=== PATIENT | female | born 1980 | race Caucasian/White ===

== ENCOUNTER 2023-12-01 06:15 | Inpatient (IN) | payer BC, OTHER ==
[~2023-12-01] VITALS: Ht 160 cm; Wt 79.6 kg
[2023-12-01] MEDS: ONDANSETRON HCL 4 MG/2 ML VIAL IV ONE ×3 (06:30→15:27)
[2023-12-01] MEDS: SODIUM CHLORIDE 0.9% 1,000 ML IVB ONE (06:30)
[2023-12-01] MEDS: MORPHINE SULFATE 4 MG/ML SYR/VIAL IV ONE (06:58)
[2023-12-01] MEDS: KETOROLAC TROMETH 30 MG/ML 1ML VIAL IV ONE (07:02)
[2023-12-01 07:09] LABS: Basophils # (auto) 0.1 10 ^3/uL (0-0.2); Basophils % (auto) 0.6 % (0.0-2.0); Eosinophils # (auto) 0.1 10 ^3/uL (0-0.8); Eosinophils % (auto) 1.1 % (0.0-7.0); Hematocrit 39.7 % (36.0-46.0); Hemoglobin 13.5 g/dL (12.2-16.2); Lymphocytes # (auto) 1.1 10 ^3/uL (0.4-5.4); Lymphocytes % (auto) 9.7 % (10.0-50.0); Mean Corpuscular Volume 88.3 fL (80.0-100.0); Monocytes # (auto) 0.7 10 ^3/uL (0-1.3); Monocytes % (auto) 6.4 % (0.0-12.0); Neutrophils % (auto) 82.2 % (37.0-80.0)
[2023-12-01 07:19] LABS: Chloride 108 mmol/L (98-107); Potassium 3.8 mmol/L (3.5-5.1); Sodium 137 mmol/L (136-145)
[2023-12-01 07:20] LABS: Anion Gap 7 (5-15); Carbon Dioxide 22 mmol/L (20-30)
[2023-12-01 07:26] LABS: BUN/Creatinine Ratio 11.8 (10.0-20.0); Blood Urea Nitrogen 9 mg/dL (9-23); Glucose 163 mg/dL (74-106)
[2023-12-01 07:43] LABS: Urine Amorphous Crystal FEW /hpf (None Seen); Urine Bacteria FEW /hpf (None Seen); Urine Blood Negative /uL (Negative); Urine Protein, UAD Negative (Negative); Urine Specific Gravity 1.015 (1.001-1.035); Urine Urobilinogen Normal (Negative); Urine WBC 1 /hpf (0 - 5)
[2023-12-01 07:44] LABS: Urine Color Light-Yellow (Yellow)
[2023-12-01 07:45] LABS: Urine Clarity Cloudy (Clear)
[2023-12-01 08:45] VITALS: PULSE 80; RESP 16; O2SAT 99
[2023-12-01] MEDS: HYDROmorphone HCL 2 MG/ML VL/or syr IV ONE ×2 (09:02→15:28)
[2023-12-01 11:30] VITALS: PULSE 70; RESP 12; O2SAT 94
[2023-12-01] MEDS: IOHEXOL 300 MG/ML 100ML BOTTLE IJ ONE (17:01)
[2023-12-01] MEDS: SODIUM CHLORIDE 0.9% 1,000 ML IV SCH (18:30)
[2023-12-01] MEDS: SODIUM CHLORIDE 0.9% 1,000 ML IV ONE (18:35)
[2023-12-01 21:10] VITALS: PULSE 82; RESP 14; O2SAT 98
[2023-12-01] MEDS: MORPHINE SULFATE INJ 2 MG/ml SYRG IV PRN (22:50)
[2023-12-01] MEDS: ONDANSETRON HCL 4 MG/2 ML VIAL IV PRN (22:51)
[2023-12-01 23:30] VITALS: BP 95/57; PULSE 74; RESP 16; TEMP 98.4; O2SAT 98
[2023-12-01 23:59] VITALS: BP 95/57; PULSE 73; RESP 16; RESP 20; TEMP 98.2; O2SAT 98
[2023-12-02] VITALS (8 sets, daily range): BP systolic 95–121; BP diastolic 58–76; PULSE 61–80; RESP 15–20; TEMP 97.7–98.7; O2SAT 92–100
[2023-12-02] MEDS: HYDROcodone-ACET 5/325MG TAB PO PRN (05:35)
[2023-12-02] MEDS: ACETAMINOPHEN 325 MG TAB PO PRN (08:50)
[2023-12-02] MEDS ORDERED: ACET-1882 PO (11:41)
[2023-12-02] MEDS: TAMSULOSIN HYDROCHLORIDE 0.4 MG CAP PO ONE (12:22)
[2023-12-02] MEDS: MORPHINE SULFATE 4 MG/ML SYR/VIAL IV ONE (12:46)
[2023-12-02] MEDS: MANNITOL FTV 25% 12.5 GM/50 ML 50 ML IV ONE (12:55)
[2023-12-02] MEDS: SODIUM CHLORIDE 0.9% 2,000 ML IV ONE (13:48)
[2023-12-03] VITALS (8 sets, daily range): BP systolic 114–124; BP diastolic 62–71; PULSE 71–104; RESP 14–18; TEMP 97.7–99.3; O2SAT 94–96
[2023-12-03 14:19] LABS: INR 1.1 (0.9-1.15); Prothrombin Time 11.6 sec (9.3-11.8)
[2023-12-03 14:21] LABS: Chloride 107 mmol/L (98-107); Potassium 3.6 mmol/L (3.5-5.1); Sodium 134 mmol/L (136-145)
[2023-12-03 14:22] LABS: Anion Gap 5 (5-15); Carbon Dioxide 22 mmol/L (20-30)
[2023-12-03 14:23] LABS: Calcium 8.7 mg/dL (8.7-10.4)
[2023-12-03] MEDS: TAMSULOSIN HYDROCHLORIDE 0.4 MG CAP PO SCH (14:23)
[2023-12-03] MEDS: MANNITOL FTV 25% 12.5 GM/50 ML 50 ML IV ONE (14:24)
[2023-12-03 14:27] LABS: BUN/Creatinine Ratio 6.3 (10.0-20.0); Blood Urea Nitrogen 7 mg/dL (9-23); Glucose 112 mg/dL (74-106)
[2023-12-03] MEDS: SODIUM CHLORIDE 0.9% 2,000 ML IV ONE (14:45)
[2023-12-03] MEDS: HYDROmorphone HCL 2 MG/ML VL/or syr IV ONE (16:28)
[2023-12-04] VITALS (8 sets, daily range): BP systolic 108–147; BP diastolic 57–81; PULSE 89–107; RESP 17–19; TEMP 98.1–98.5; O2SAT 92–98
[2023-12-04] MEDS: FUROSEMIDE 20 MG/2 ML VIAL IV ONE (11:15)
[2023-12-04] MEDS ORDERED: HYDROcodone-ACET 10/325MG TAB PO PRN ×2 (12:30→12:45)
[2023-12-04] MEDS: HYDROcodone-ACET 10/325MG TAB PO PRN (12:51)
[2023-12-04] MEDS: MORPHINE SULFATE INJ 2 MG/ml SYRG IV ONE (13:23)
[2023-12-04] MEDS: SODIUM CHLORIDE 0.9% 1,000 ML IV ONE (13:24)
[2023-12-04 20:05] LABS: Basophils # (auto) 0 10 ^3/uL (0-0.2); Basophils % (auto) 0.3 % (0.0-2.0); Eosinophils # (auto) 0 10 ^3/uL (0-0.8); Eosinophils % (auto) 0.3 % (0.0-7.0); Hematocrit 37.5 % (36.0-46.0); Hemoglobin 12.9 g/dL (12.2-16.2); Lymphocytes # (auto) 0.8 10 ^3/uL (0.4-5.4); Lymphocytes % (auto) 6.5 % (10.0-50.0); Mean Corpuscular Hemoglobin 30.4 pg (28.0-32.0); Mean Corpuscular Hgb Conc. 34.4 g/dL (32.0-36.0); Mean Corpuscular Volume 88.4 fL (80.0-100.0); Monocytes # (auto) 1.3 10 ^3/uL (0-1.3); Monocytes % (auto) 10.4 % (0.0-12.0); Neutrophils # (auto) 10.5 10 ^3/uL (1.6-8.6); Neutrophils % (auto) 82.5 % (37.0-80.0); Nucleated Red Blood Cells % 0.1 %; Red Blood Cells 4.25 10^6/uL (4.0-5.20); Red Cell Distribution Width 13.5 % (11.8-14.3); White Blood Cell 12.7 10^3/uL (4.4-10.8)
[2023-12-04 20:18] LABS: Chloride 104 mmol/L (98-107); Potassium 3.3 mmol/L (3.5-5.1); Sodium 133 mmol/L (136-145)
[2023-12-04 20:19] LABS: Anion Gap 8 (5-15); Calcium 9.1 mg/dL (8.7-10.4); Carbon Dioxide 21 mmol/L (20-30)
[2023-12-04 20:24] LABS: Glucose 131 mg/dL (74-106)
[2023-12-04 20:28] LABS: BUN/Creatinine Ratio 7.5 (10.0-20.0); Blood Urea Nitrogen < 5 mg/dL (9-23)
[2023-12-05] VITALS (9 sets, daily range): BP systolic 106–131; BP diastolic 63–80; PULSE 80–107; RESP 18–19; TEMP 97.8–98.9; O2SAT 94–96
[2023-12-05] MEDS: PANTOPRAZOLE 40 MG TAB PO SCH (00:44)
[2023-12-05] MEDS: POTASSIUM CHL 20 Meq TABLET PO ONE (00:44)
[2023-12-05 06:34] LABS: Anion Gap 7 (5-15); Carbon Dioxide 25 mmol/L (20-30); Chloride 103 mmol/L (98-107); Potassium 3.5 mmol/L (3.5-5.1); Sodium 135 mmol/L (136-145)
[2023-12-05 06:35] LABS: Calcium 9.2 mg/dL (8.7-10.4)
[2023-12-05 06:40] LABS: Blood Urea Nitrogen 6 mg/dL (9-23); Glucose 110 mg/dL (74-106)
[2023-12-05 06:44] LABS: Basophils # (auto) 0 10 ^3/uL (0-0.2); Basophils % (auto) 0.3 % (0.0-2.0); Eosinophils # (auto) 0.1 10 ^3/uL (0-0.8); Eosinophils % (auto) 0.9 % (0.0-7.0); Hematocrit 34.1 % (36.0-46.0); Lymphocytes # (auto) 0.6 10 ^3/uL (0.4-5.4); Lymphocytes % (auto) 5.4 % (10.0-50.0); Mean Corpuscular Hemoglobin 30.1 pg (28.0-32.0); Mean Corpuscular Hgb Conc. 35.1 g/dL (32.0-36.0); Mean Corpuscular Volume 85.8 fL (80.0-100.0); Monocytes # (auto) 1.3 10 ^3/uL (0-1.3); Monocytes % (auto) 11.3 % (0.0-12.0); Neutrophils # (auto) 9.6 10 ^3/uL (1.6-8.6); Neutrophils % (auto) 82.1 % (37.0-80.0); Nucleated Red Blood Cells % 0.1 %; Red Blood Cells 3.98 10^6/uL (4.0-5.20); Red Cell Distribution Width 13.6 % (11.8-14.3); White Blood Cell 11.7 10^3/uL (4.4-10.8)
[2023-12-05] MEDS: MANNITOL FTV 25% 12.5 GM/50 ML 50 ML IV ONE (18:42)
== END 2023-12-05 23:02 | disposition short-term general hospital (02) | DRG 694 ==
LOC: ER 06:15 → EDBD 06:15 → TELE 18:26 → TELE-WESTW 23:15
PROVIDERS: ADMIT Internal Medicine; ATTEND Internal Medicine
DX: N13.2 Hydronephrosis with renal and ureteral calculous obstruction (principal); K42.9 Umbilical hernia without obstruction or gangrene
CPT/HCPCS: 36415; 74018; 74176; 74177; 76775; 80048; 81001; 81025; 83605; 85025; 85610; G0378; J1885; J2405